=== PATIENT | female | born 1965 | race American Indian/Alaskan Native ===

== ENCOUNTER 2017-04-22 23:39 | Emergency (ER) | payer MEDICAID, OTHER ==
[2017-04-22] MEDS ORDERED: Lidocaine 1% 30 ML SDV INJECT ONE (23:45)
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
[2017-04-23] MEDS ORDERED: Diphtheria,Pertussis(Acell),Tetanus Vaccine 0.5 ML SDV IM ONE (00:13)
[2017-04-23 00:15] VITALS: BP 107/64
== END 2017-04-23 00:40 | disposition home or self-care (01) ==
LOC: DL.ED 23:39
DX: S01.81XA Laceration without foreign body of other part of head, initial encounter (principal); F17.210 Nicotine dependence, cigarettes, uncomplicated; Z88.5 Allergy status to narcotic agent; Z88.8 Allergy status to other drugs, medicaments and biological substances; W22.8XXA Striking against or struck by other objects, initial encounter; Z23 Encounter for immunization
CPT/HCPCS: 12011; 90715; 99284

== ENCOUNTER 2023-01-05 22:21 | Emergency (ER) | payer MEDICAID, OTHER ==
[2023-01-05] MEDS ORDERED: Diltiazem IR 30 MG Tab PO ONE (22:48)
[2023-01-05 23:58] VITALS: BP 131/87; PULSE 88
== END 2023-01-06 00:34 | disposition home or self-care (01) ==
LOC: DL.ED 22:21
DX: I10 Essential (primary) hypertension (principal); Z88.5 Allergy status to narcotic agent; Z88.8 Allergy status to other drugs, medicaments and biological substances
CPT/HCPCS: 99283; A9270